=== PATIENT | male | born 1940 | race Caucasian/White ===

== ENCOUNTER 2019-06-18 06:39 | Inpatient (IN) | payer OTHER ==
[2019-06-12 10:43] LABS: BASOPHILS # (AUTO) 0.1 X10'3 (0-0.2); BASOPHILS % (AUTO) 0.7 % (0-1); EOSINOPHILS # (AUTO) 0.2 X10'3 (0-0.9); LYMPHOCYTES # (AUTO) 2.5 X10'3 (1.1-4.8); LYMPHOCYTES % (AUTO) 29.8 % (21-51); MEAN CORPUSCULAR HEMOGLOBIN 31.3 PG (27.0-31.0); MEAN CORPUSCULAR HGB CONC 34.4 g/dL (33.0-36.5); MEAN CORPUSCULAR VOLUME 90.8 FL (78-98); MEAN PLATELET VOLUME 9.6 FL (7.4-10.4); MONOCYTES # (AUTO) 0.6 X10'3 (0-0.9); MONOCYTES % (AUTO) 7.8 % (2-12); NEUTROPHILS # (AUTO) 4.9 X10'3 (1.8-7.7); NEUTROPHILS % (AUTO) 59.7 % (42-75); PRE OP HEMATOCRIT 44.4 % (42.0-52.0); PRE OP HEMOGLOBIN 15.3 g/dL (14.0-17.9); PRE OP PLATELET COUNT 191 X10'3 (140-440); RED BLOOD COUNT 4.88 X10'6 (4.70-6.10); RED CELL DISTRIBUTION WIDTH 13.4 % (11.5-14.5)
[2019-06-12 10:54] LABS: PRE OP PROTIME 10.5 SECONDS (9.0-12.0)
[2019-06-12 10:56] LABS: ALBUMIN 3.7 G/DL (3.4-5.0); ALBUMIN/GLOBULIN RATIO 0.8 (1.1-1.5); ALKALINE PHOSPHATASE 67 IU/L (46-116); BLOOD UREA NITROGEN 24 MG/DL (7-18); BUN/CREATININE RATIO 22.9 (5.4-32.0); CALCIUM 9.1 MG/DL (8.5-10.1); CHLORIDE 104 MMOL/L (99-107); CREATININE 1.05 MG/DL (0.60-1.10); PRE OP ALT 31 U/L (30-65); PRE OP ANION GAP 11 (8-16); PRE OP AST 17 U/L (10-37); PRE OP BILIRUB, TOTAL 0.8 MG/DL (0.0-1.0); PRE OP GLUCOSE 103 MG/DL (70-104); PRE OP POTASSIUM 4.3 MMOL/L (3.4-5.1); PRE OP SODIUM 142 MMOL/L (135-145); TOTAL CARBON DIOXIDE 26.8 MMOL/L (24-32); TOTAL PROTEIN 8.4 G/DL (6.4-8.2); eGFR 68 ML/MIN
[2019-06-18] VITALS (18 sets, daily range): BP systolic 93–178; BP diastolic 54–109
[~2019-06-18] VITALS: Ht 177.8 cm; Wt 96.2 kg
[~2019-06-18 06:39] MED LIST: ACET-1059 PO; FLO0.4C PO; GABA-532 PO; LISI40TA4 PO; MELO7.5T12 PO; VANCOMYCIN INJ 1000 MG in NORMAL SALINE 250ml IV.SOLN IV ONE; acetaminophen 325mg tablet PO ONE; cefazolin/dext.iso 2gm/50ml 50 ML IV ONE; celeCOXIB 100mg capsule PO ONE; famotidine 20mg tablet PO ONE; gabapentin 300mg capsule PO ONE; metoclopramide 5 mg/ml inj IV ONE; oxyCODONE SR 10mg (sust. release) tab -2 tabs (20mg) PO ONE; ringers solution, lacted 1,000 ML IV SCH; tranexamic acid inj. 1,000 MG in normal saline 100 ML IV ONE; vancomycin inj 1,500 MG in normal saline 300ml IV soln IV ONE
[2019-06-18] MEDS ORDERED: ondansetron/PF 4mg/2ml inj IV PRN ×3 (06:40→10:25)
[2019-06-18] MEDS ORDERED: bisacodyl 10mg suppository rectal RC PRN (06:40)
[2019-06-18] MEDS ORDERED: magnesium hydroxide 30ml (MOM) UD suspension PO PRN (06:40)
[2019-06-18] MEDS ORDERED: acetaminophen 325mg tablet PO PRN (06:40)
[2019-06-18] MEDS ORDERED: diphenhydrAMINE 25mg capsule PO PRN (06:40)
[2019-06-18] MEDS ORDERED: HYDROmorphone 1 mg/ml syringe IV PRN (06:40)
[2019-06-18] MEDS: gabapentin 300mg capsule PO SCH ×3 (08:00→21:09)
[2019-06-18] MEDS: lisinopril 20mg tablet PO SCH (08:00)
[2019-06-18] MEDS: tamsulosin 0.4mg capsule PO SCH (08:00)
[2019-06-18] MEDS: ascorbic acid 500mg tablet PO SCH ×2 (08:00→21:09)
[2019-06-18] MEDS ORDERED: ringers solution, lacted 1,000 ML IV SCH (08:04)
[2019-06-18] MEDS ORDERED: fentaNYL/PF 50MCG/1 ML 2ML syringe IV PRN ×2 (08:05)
[2019-06-18] MEDS ORDERED: hydrALAZINE 20mg/ml inj. IV PRN (08:05)
[2019-06-18] MEDS ORDERED: morphine 4 MG/ML inj SYRINge IV PRN ×2 (08:05)
[2019-06-18] MEDS ORDERED: labetalol 20mg/4ml (5mg/ml) syringe IV PRN (08:05)
[2019-06-18] MEDS: aspirin 325mg tablet PO SCH (08:30)
[2019-06-18] MEDS ORDERED: vancomycin 1,000mg inj ONE (08:59)
[2019-06-18] MEDS ORDERED: ketorolac trometh. 30mg/ml inj. ONE (08:59)
[2019-06-18] MEDS ORDERED: cloNIDine hcl/PF 100mcg/ml inj ONE (08:59)
[2019-06-18] MEDS ORDERED: epiNEPHrine 1 mg/ml inj ONE (08:59)
[2019-06-18] MEDS ORDERED: ROPIVAcaine 0.5% (5mg/ml) 30ml vial ONE (09:00)
[2019-06-18] MEDS ORDERED: tetracaine 1% (10mg/ml) pres. free inj. ONE (09:01)
[2019-06-18] MEDS ORDERED: MIDAZolam 5mg/5ml vial ONE (09:22)
[2019-06-18] MEDS ORDERED: fentaNYL/PF 50MCG/1 ML 2ML syringe ONE (09:22)
[2019-06-18] MEDS ORDERED: phenylephrine 10mg/ml inj. ONE (09:29)
[2019-06-18] MEDS ORDERED: LIDOcaine 2% (20mg/ml) 5ml vial ONE (09:55)
[2019-06-18] MEDS ORDERED: propofol inj 20 ML IV ONE (09:55)
[2019-06-18] MEDS ORDERED: diphenhydrAMINE 50 mg/ml inj IV PRN (10:25)
--- NOTE | 2019-06-18 11:05 | NUR ---
Received from OR via BED, accompanied by Anesthesiologist DR PAYNE and report given by Anesthesiolgist. PATIENT WAKING UP, DENIES PAIN, V/S WNL, NEUROVASCULAR CHECKS INTACT, TAO DRESSING TO RIGHT HIP CDI WITH RLE IN LEG BRACE, SCD ON, 18G LUE . F/C DRAINING CLEAR YELLOW URINE
--- NOTE | 2019-06-18 12:05 | NUR ---
PATIENT A&OX4, DENIES PAIN, V/S WNL, NEUROVASCULAR CHECKS INTACT, TAO DRESSING TO RIGHT HIP CDI WITH RLE IN LEG BRACE, SCD ON, 20G LUE . F/C DRAINING CLEAR YELLOW URINE, SENSATIONS T10. PATIENT TAKEN TO 4013B WITH ALL BELONGINGS AND HOOKED UP TO MONITORS IN ROOM AND REPORT GIVEN TO PLATE AND FRAME FILTER OPERATOR WHO HAS TAKEN OVER PATIENT CARE.
[2019-06-18] MEDS: potassium cl 20mEq in 1/2 NS 1,000 ML IV SCH ×4 (14:39→23:52)
[2019-06-18] MEDS ORDERED: tranexamic acid inj. 1,000 MG in normal saline 100ml IV soln 100 ML IV ONE (16:00)
[2019-06-18] MEDS: cefazolin/dext.iso 2gm/50ml 50 ML IV SCH ×2 (17:09→23:52)
[2019-06-18] MEDS: HYDROcodone/acetaminophen 10/325mg tab PO PRN ×2 (17:15→20:37)
--- NOTE | 2019-06-18 18:15 | NUR ---
RECEIVED REPORT FROM ELIU NAVARRO AND ASSUMED PATIENT CARE
--- NOTE | 2019-06-18 18:26 | NUR ---
RECEIVED REPORT FROM ELIU NAVARRO AND ASSUMED PATIENT CARE
--- NOTE | 2019-06-18 18:37 | NUR ---
Problems reprioritized. Patient report given, questions answered & plan of care reviewed with Jocy NAVARRO.
[2019-06-18] MEDS: sennosides 8.6mg tablet PO SCH (21:09)
[2019-06-19 05:00] LABS: BASOPHILS # (AUTO) 0.1 X10'3 (0-0.2); BASOPHILS % (AUTO) 0.6 % (0-1); EOSINOPHILS # (AUTO) 0.1 X10'3 (0-0.9); EOSINOPHILS % (AUTO) 1.1 % (0-6); HEMATOCRIT 39.6 % (42.0-52.0); HEMOGLOBIN 13.7 g/dl (14.0-17.9); LYMPHOCYTES % (AUTO) 11.3 % (21-51); MEAN CORPUSCULAR HEMOGLOBIN 31.5 PG (27.0-31.0); MEAN CORPUSCULAR HGB CONC 34.6 g/dL (33.0-36.5); MEAN CORPUSCULAR VOLUME 91.1 FL (78-98); MEAN PLATELET VOLUME 9.3 FL (7.4-10.4); MONOCYTES # (AUTO) 0.5 X10'3 (0-0.9); MONOCYTES % (AUTO) 5.3 % (2-12); NEUTROPHILS # (AUTO) 7.3 X10'3 (1.8-7.7); NEUTROPHILS % (AUTO) 81.7 % (42-75); PLATELET COUNT 158 X10'3 (140-440); RED BLOOD COUNT 4.34 X10'6 (4.70-6.10); RED CELL DISTRIBUTION WIDTH 13.6 % (11.5-14.5)
[2019-06-19 05:08] LABS: ANION GAP 8 (8-16); CHLORIDE 103 MMOL/L (99-107); POTASSIUM 4.4 MMOL/L (3.5-5.1); SODIUM 137 MMOL/L (135-145); TOTAL CARBON DIOXIDE 26.1 MMOL/L (24-32)
[2019-06-19] MEDS: HYDROcodone/acetaminophen 10/325mg tab PO PRN ×4 (05:12→20:22)
[2019-06-19 06:00] VITALS: BP 173/91
[2019-06-19] MEDS: tamsulosin 0.4mg capsule PO SCH (08:56)
[2019-06-19] MEDS: ascorbic acid 500mg tablet PO SCH ×2 (08:57→20:23)
[2019-06-19] MEDS: aspirin 325mg tablet PO SCH (08:57)
[2019-06-19] MEDS: gabapentin 300mg capsule PO SCH ×3 (08:57→20:21)
[2019-06-19] MEDS: lisinopril 20mg tablet PO SCH (08:57)
[2019-06-19] MEDS: diphenhydrAMINE 25mg capsule PO PRN (08:58)
[2019-06-19 10:00] VITALS: BP 136/56
[2019-06-19] MEDS: potassium cl 20mEq in 1/2 NS 1,000 ML IV SCH ×2 (14:39→20:27)
--- NOTE | 2019-06-19 16:44 | NUR ---
Bladder scan revealed 81ml . Pt reports no discomfort, no pressure upon palpation.
[2019-06-19 18:00] VITALS: BP 113/61
--- NOTE | 2019-06-19 18:22 | NUR ---
Problems reprioritized. Patient report given, questions answered & plan of care reviewed with Jocy NAVARRO.
[2019-06-19] MEDS: sennosides 8.6mg tablet PO SCH (20:22)
[2019-06-19] MEDS: celeCOXIB 100mg capsule PO SCH (20:22)
[2019-06-19 22:00] VITALS: BP 105/58
[2019-06-19] MEDS: HYDROmorphone inj. 0.5 MG/0.5 ML DISP.SYRIN IV PRN (23:13)
[2019-06-20] MEDS: diphenhydrAMINE 25mg capsule PO PRN ×3 (03:36→20:33)
[2019-06-20] MEDS: HYDROcodone/acetaminophen 10/325mg tab PO PRN ×2 (05:25→20:10)
[2019-06-20 06:00] VITALS: BP 129/55
[2019-06-20 06:19] LABS: BASOPHILS % (AUTO) 0.4 % (0-1); EOSINOPHILS # (AUTO) 0.3 X10'3 (0-0.9); EOSINOPHILS % (AUTO) 2.6 % (0-6); HEMATOCRIT 36.5 % (42.0-52.0); HEMOGLOBIN 12.6 g/dl (14.0-17.9); LYMPHOCYTES # (AUTO) 1.2 X10'3 (1.1-4.8); LYMPHOCYTES % (AUTO) 11.4 % (21-51); MEAN CORPUSCULAR HEMOGLOBIN 31.5 PG (27.0-31.0); MEAN CORPUSCULAR HGB CONC 34.6 g/dL (33.0-36.5); MEAN CORPUSCULAR VOLUME 90.9 FL (78-98); MEAN PLATELET VOLUME 9.5 FL (7.4-10.4); MONOCYTES # (AUTO) 0.8 X10'3 (0-0.9); MONOCYTES % (AUTO) 8.2 % (2-12); NEUTROPHILS % (AUTO) 77.4 % (42-75); PLATELET COUNT 147 X10'3 (140-440); RED BLOOD COUNT 4.01 X10'6 (4.70-6.10); RED CELL DISTRIBUTION WIDTH 13.6 % (11.5-14.5); WHITE BLOOD COUNT 10.3 X10'3 (4.5-11.0)
--- NOTE | 2019-06-20 06:20 | NUR ---
Patient in room ORTH[facility] 4013. I have received report from Jocy and had the opportunity to ask questions and assume patient care.
--- NOTE | 2019-06-20 06:26 | NUR ---
Problems reprioritized. Patient report given, questions answered & plan of care reviewed with RAMON THOMAS.
--- NOTE | 2019-06-20 06:30 | NUR ---
Patient in room ORTHO 4013. I have received report from elle NAVARRO and had the opportunity to ask questions and assume patient care.
[2019-06-20 08:40] VITALS: BP 134/72
[2019-06-20] MEDS: tamsulosin 0.4mg capsule PO SCH (08:48)
[2019-06-20] MEDS: celeCOXIB 100mg capsule PO SCH ×2 (08:48→20:11)
[2019-06-20] MEDS: gabapentin 300mg capsule PO SCH ×3 (08:49→20:10)
[2019-06-20] MEDS: ascorbic acid 500mg tablet PO SCH ×2 (08:49→20:11)
[2019-06-20] MEDS: lisinopril 20mg tablet PO SCH (08:50)
[2019-06-20] MEDS: aspirin 325mg tablet PO SCH (08:50)
[2019-06-20] MEDS ORDERED: ASPI-1 PO (13:08)
--- NOTE | 2019-06-20 14:13 | NUR ---
Joint replacement consult: Pt unable to wake sleeping during RD visit. Written high protein ed w/ RD contact information left at bedside. Pt PO 75% meals good given age and post-op healing needs. Will monitor for additional protein needs post-op. Addendum: 06/20/19 at [address] Amended: Links added.
--- NOTE | 2019-06-20 15:30 | NUR ---
re: Student documentation: I have reviewed and agree with all interventions, assessments performed and documented by Mel Hedrick.
[2019-06-20 18:00] VITALS: BP 156/78
--- NOTE | 2019-06-20 18:00 | NUR ---
Patient in room ORTHO 4013. I have received report from Dory NAVARRO and had the opportunity to ask questions and assume patient care.
--- NOTE | 2019-06-20 18:01 | NUR ---
Problems reprioritized. Patient report given, questions answered & plan of care reviewed with Vanesa NAVARRO.
--- NOTE | 2019-06-20 19:30 | NUR ---
Per patient he has had a rash like this before from soap/ detergent and that is what he thinks this rash is from.
[2019-06-20] MEDS: sennosides 8.6mg tablet PO SCH (20:11)
--- NOTE | 2019-06-20 20:45 | NUR ---
Patient is unable to wear the leg brace at this time, I did place it on him but due to the rash he can't stand anything on his legs. He is unable to wear the SCD's either. I placed a pillow under each heel so he can't cross the legs and dislocate the hip.
--- NOTE | 2019-06-20 21:00 | NUR ---
Took oxygen off patient at this time due to oxygen saturation wnl without oxygen on; he had taken it off on his own.
[2019-06-20 22:00] VITALS: BP 146/76
--- NOTE | 2019-06-20 22:25 | NUR ---
I called the plastering contractor MD regarding the rash and no relief from Benadryl, I am awaiting call back from physician.
--- NOTE | 2019-06-20 22:35 | NUR ---
Dr. Gamez called back and he is going to attempt to reach Dr. Gonzales regarding what medications to give patient.
[2019-06-20] MEDS: HYDROmorphone inj. 0.5 MG/0.5 ML DISP.SYRIN IV PRN (22:43)
--- NOTE | 2019-06-20 22:45 | NUR ---
Dr. Gamez gave order for Solumedrol iv times one for itching from rash without relief from Benadryl.
[2019-06-20] MEDS ORDERED: methylPREDNISolone sod succ 125mg/2ml vial IV ONE (22:55)
--- NOTE | 2019-06-20 23:00 | NUR ---
Received report from Vanesa NAVARRO. had the opportunity to ask questions. assumed care of patient. administered solumedrol and replaced powder pack. will continue to monitor patient.
--- NOTE | 2019-06-20 23:05 | NUR ---
I gave report to Arcadio NAVARRO and she is taking over the care of the patient.
[2019-06-20] MEDS ORDERED: methylPREDNISolone sod succ 125mg/2ml vial ONE ×2 (23:10→23:13)
[2019-06-21] MEDS: HYDROcodone/acetaminophen 10/325mg tab PO PRN (02:53)
[2019-06-21] MEDS: diphenhydrAMINE 25mg capsule PO PRN ×2 (02:53→11:43)
--- NOTE | 2019-06-21 04:30 | NUR ---
No change in appearance of the rash noted at this time, still c/o itching and pain so will give more Rustam and [place]. Addendum: 06/21/19 at 0603 by Vanesa Carvajal RN This was around 0300 not 0430.
[2019-06-21 05:21] LABS: BASOPHILS % (AUTO) 0.2 % (0-1); EOSINOPHILS # (AUTO) 0.1 X10'3 (0-0.9); EOSINOPHILS % (AUTO) 0.4 % (0-6); HEMATOCRIT 38.1 % (42.0-52.0); LYMPHOCYTES # (AUTO) 0.7 X10'3 (1.1-4.8); LYMPHOCYTES % (AUTO) 5.7 % (21-51); MEAN CORPUSCULAR HEMOGLOBIN 31.3 PG (27.0-31.0); MEAN CORPUSCULAR HGB CONC 34.3 g/dL (33.0-36.5); MEAN CORPUSCULAR VOLUME 91.4 FL (78-98); MEAN PLATELET VOLUME 9.1 FL (7.4-10.4); MONOCYTES # (AUTO) 0.2 X10'3 (0-0.9); MONOCYTES % (AUTO) 1.8 % (2-12); NEUTROPHILS # (AUTO) 11.5 X10'3 (1.8-7.7); NEUTROPHILS % (AUTO) 91.9 % (42-75); PLATELET COUNT 174 X10'3 (140-440); RED BLOOD COUNT 4.17 X10'6 (4.70-6.10); RED CELL DISTRIBUTION WIDTH 13.7 % (11.5-14.5); WHITE BLOOD COUNT 12.5 X10'3 (4.5-11.0)
[2019-06-21 06:00] VITALS: BP 133/86
--- NOTE | 2019-06-21 06:05 | NUR ---
Patient in room ORTHO 4013. I have received report from [facility] and had the opportunity to ask questions and assume patient care.
--- NOTE | 2019-06-21 06:10 | NUR ---
Gave report to Dory NAVARRO.
[2019-06-21] MEDS: tamsulosin 0.4mg capsule PO SCH (07:48)
[2019-06-21] MEDS: celeCOXIB 100mg capsule PO SCH (07:48)
[2019-06-21] MEDS: lisinopril 20mg tablet PO SCH (07:49)
[2019-06-21] MEDS: aspirin 325mg tablet PO SCH (07:49)
[2019-06-21] MEDS: gabapentin 300mg capsule PO SCH (07:49)
[2019-06-21] MEDS: ascorbic acid 500mg tablet PO SCH (07:49)
[2019-06-21 07:50] VITALS: BP 126/64
[2019-06-21 10:00] VITALS: BP 143/69
--- NOTE | 2019-06-21 12:26 | NUR ---
Reviewed discharge instructions with pt and family. Pt verbalized understanding. Pt is alert, oriented and does not have c/o pain or discomfort. Pt's TAO dressing was changed immediately prior to discharge. All of pt's belongings were returned to pt. Pt was wheeled downstairs to be driven home by family.
== END 2019-06-21 12:39 | disposition home or self-care (01) | DRG 470 ==
LOC: PAS IN 06:39 → EDSTATUS 10:00 → ORTHO 4S 13:00
PROVIDERS: ADMIT Orthopaedic Surgery; ATTEND Orthopaedic Surgery
PROC: 0SR906A Replacement of Right Hip Joint with Oxidized Zirconium on Polyethylene Synthetic Substitute, Uncemented, Open Approach (ICD-10-PCS; principal; 2019-06-18 09:29)
DX: M16.11 Unilateral primary osteoarthritis, right hip (principal); D62 Acute posthemorrhagic anemia; I10 Essential (primary) hypertension; N40.0 Benign prostatic hyperplasia without lower urinary tract symptoms; Z87.11 Personal history of peptic ulcer disease; Z87.891 Personal history of nicotine dependence; Z79.899 Other long term (current) drug therapy
CPT/HCPCS: 36415; 71046; 72170; 80051; 80053; 82948; 85025; 85610; 85730; 86885; 86900; 86901; 87081; 97116; 97162; 97530; A4615; A7000; C1758; C1776; G0378; J0171; J0735; J1170; J1885; J2001; J2250; J2370; J2704; J2765; J2795; J2930; J3010; J3370; J3480; J7120; Q0163

== ENCOUNTER 2021-01-06 01:29 | Emergency (ER) | payer OTHER ==
[~2021-01-06] VITALS: Ht 175.3 cm; Wt 92.7 kg
[~2021-01-06 01:29] MED LIST changes: -ACET-1059 PO; +ASPI-1 PO; +LISI40TA13 PO; -LISI40TA4 PO; -VANCOMYCIN INJ 1000 MG in NORMAL SALINE 250ml IV.SOLN IV ONE; -acetaminophen 325mg tablet PO ONE; -cefazolin/dext.iso 2gm/50ml 50 ML IV ONE; -celeCOXIB 100mg capsule PO ONE; -famotidine 20mg tablet PO ONE; -gabapentin 300mg capsule PO ONE; -metoclopramide 5 mg/ml inj IV ONE; -oxyCODONE SR 10mg (sust. release) tab -2 tabs (20mg) PO ONE; -ringers solution, lacted 1,000 ML IV SCH; -tranexamic acid inj. 1,000 MG in normal saline 100 ML IV ONE; -vancomycin inj 1,500 MG in normal saline 300ml IV soln IV ONE
[2021-01-06] MEDS ORDERED: LIDOcaine 2% 10ml TOPICAL JELLY (Urojet) MM ONE (01:35)
[2021-01-06] MEDS ORDERED: LIDOcaine 2% 10ml TOPICAL JELLY (Urojet) TP ONE (01:35)
[2021-01-06 01:37] VITALS: BP 189/92
[2021-01-06 02:11] LABS: BASOPHILS # (AUTO) 0.1 X10'3 (0-0.2); BASOPHILS % (AUTO) 0.8 % (0-1); EOSINOPHILS # (AUTO) 0.1 X10'3 (0-0.9); EOSINOPHILS % (AUTO) 1.7 % (0-6); HEMOGLOBIN 13.9 g/dl (14.0-17.9); LYMPHOCYTES # (AUTO) 1.7 X10'3 (1.1-4.8); LYMPHOCYTES % (AUTO) 23.4 % (21-51); MEAN CORPUSCULAR VOLUME 91.3 FL (78-98); MEAN PLATELET VOLUME 9.7 FL (7.4-10.4); MONOCYTES # (AUTO) 0.5 X10'3 (0-0.9); MONOCYTES % (AUTO) 6.2 % (2-12); NEUTROPHILS # (AUTO) 4.9 X10'3 (1.8-7.7); NEUTROPHILS % (AUTO) 67.9 % (42-75); PLATELET COUNT 180 X10'3 (140-440); RED BLOOD COUNT 4.49 X10'6 (4.70-6.10); WHITE BLOOD COUNT 7.2 X10'3 (4.5-11.0)
--- NOTE | 2021-01-06 02:17 | NUR ---
PT GIVEN CATH TRAINING FOR EMPTYING DRAINAGE BAG AND SWITCHING BACK AND FORTH BETWEEN LEG BAG AND BEDSIDE DRAINAGE DEVICE.
[2021-01-06 02:25] LABS: ALANINE AMINOTRANSFERASE 27 U/L (12-78); ALBUMIN 3.9 G/DL (3.4-5.0); ALBUMIN/GLOBULIN RATIO 0.9 (1.1-1.5); ALKALINE PHOSPHATASE 77 IU/L (46-116); ANION GAP 10 (8-16); ASPARTATE AMINO TRANSFERASE 18 U/L (10-37); BLOOD UREA NITROGEN 25 MG/DL (7-18); BUN/CREATININE RATIO 21.7 (5.4-32.0); CALCIUM 9.3 MG/DL (8.5-10.1); CHLORIDE 103 MMOL/L (99-107); CREATININE 1.15 MG/DL (0.60-1.10); GLUCOSE 110 MG/DL (70-104); POTASSIUM 4.2 MMOL/L (3.5-5.1); SODIUM 139 MMOL/L (135-145); TOTAL CARBON DIOXIDE 26.4 MMOL/L (24-32); TOTAL PROTEIN 8.1 G/DL (6.4-8.2); eGFR 61 ML/MIN
== END 2021-01-06 02:54 | disposition home or self-care (01) ==
LOC: ER 01:29
DX: R33.9 Retention of urine, unspecified (principal); R10.30 Lower abdominal pain, unspecified; N28.9 Disorder of kidney and ureter, unspecified; Z79.82 Long term (current) use of aspirin; Z79.899 Other long term (current) drug therapy
CPT/HCPCS: 36415; 51702; 80053; 85025; 99284

== ENCOUNTER 2021-01-08 16:38 | Emergency (ER) | payer OTHER ==
[~2021-01-08] VITALS: Ht 177.8 cm; Wt 87.0 kg
[2021-01-08 17:46] LABS: CLARITY,URINE SLIGHTLY CLOUDY (Clear); COLOR,URINE YELLOW (Yellow); GLUCOSE, URINE NEGATIVE (Neg); KETONES,URINE TRACE mg/dl (Neg); LEUKOCYTE ESTERASE ,URINE SMALL (Neg); NITRITES, URINE NEGATIVE (Neg); OCCULT BLOOD,URINE LARGE (Neg); PH,URINE 5.5 (4.8-8.0); PROTEIN,URINE 100 mg/dl (Neg); UROBILINOGEN,URINE 0.2 E.U/dL (0.2-1.0)
--- NOTE | 2021-01-08 17:54 | NUR ---
report given by Olga NAVARRO, assumed care.
[2021-01-08 18:10] LABS: UA COLLECTION TYPE FOLEY CATH
[2021-01-08 18:11] LABS: BACTERIA,URINE NONE SEEN /HPF (Neg); MUCUS STRANDS MODERATE /LPF (Neg); RBC,URINE 20-50 /HPF (0-2); SQUAMOUS EPITHELIAL CELL,UR NONE SEEN /LPF (FEW); WBC,URINE 0-4 /HPF (0-4)
--- NOTE | 2021-01-08 18:18 | NUR ---
report given to RN, care transferred
[2021-01-08] MEDS ORDERED: CIPR-202 PO (19:17)
[2021-01-08] MEDS ORDERED: PHEN-786 PO (19:20)
[2021-01-08 20:48] VITALS: BP 148/82
== END 2021-01-08 19:55 | disposition home or self-care (01) ==
LOC: ER 16:39
DX: N39.0 Urinary tract infection, site not specified (principal); R30.0 Dysuria; R33.9 Retention of urine, unspecified; R31.9 Hematuria, unspecified; Z79.82 Long term (current) use of aspirin; Z79.2 Long term (current) use of antibiotics; Z79.899 Other long term (current) drug therapy
CPT/HCPCS: 81001; 87088; 99283

== ENCOUNTER 2021-01-26 12:02 | Emergency (ER) | payer OTHER, MEDICARE ==
[~2021-01-26] VITALS: Ht 177.8 cm; Wt 87.8 kg
[~2021-01-26 12:02] MED LIST changes: +PHEN-786 PO
[2021-01-26] MEDS ORDERED: LIDOcaine 2% 10ml TOPICAL JELLY (Urojet) TP ONE (13:10)
--- NOTE | 2021-01-26 13:28 | NUR ---
14 JUSTA CHRISTIANSON INSERTED AT THIS TIME PER MD ORDER. Addendum: 01/26/21 at 1335 by MARIA GUADALUPE 675 ML CLEAR YELLOW URINE DRAINED FROM DRAINAGE BAG, DR VALDERRAMA AWARE.
[2021-01-26 13:45] LABS: CLARITY,URINE CLEAR (Clear); COLOR,URINE STRAW (Yellow); GLUCOSE, URINE NEGATIVE (Neg); KETONES,URINE NEGATIVE (Neg); LEUKOCYTE ESTERASE ,URINE NEGATIVE (Neg); NITRITES, URINE NEGATIVE (Neg); OCCULT BLOOD,URINE MODERATE (Neg); PROTEIN,URINE NEGATIVE (Neg); UA COLLECTION TYPE FOLEY CATH; UROBILINOGEN,URINE 0.2 E.U/dL (0.2-1.0)
[2021-01-26 13:53] LABS: BACTERIA,URINE NONE SEEN /HPF (Neg); RBC,URINE 0-2 /HPF (0-2); SQUAMOUS EPITHELIAL CELL,UR FEW /LPF (FEW); WBC,URINE 0-4 /HPF (0-4)
== END 2021-01-26 14:59 | disposition home or self-care (01) ==
LOC: ER 12:02
DX: R33.9 Retention of urine, unspecified (principal); R34 Anuria and oliguria; N40.0 Benign prostatic hyperplasia without lower urinary tract symptoms; Z79.82 Long term (current) use of aspirin; Z79.899 Other long term (current) drug therapy
CPT/HCPCS: 51702; 81001; 99284

== ENCOUNTER 2021-02-26 05:49 | Emergency (ER) | payer OTHER, MEDICARE ==
[~2021-02-26] VITALS: Ht 177.8 cm; Wt 90.0 kg
[2021-02-26 06:06] VITALS: BP 150/86
[2021-02-26 06:54] LABS: CLARITY,URINE SLIGHTLY CLOUDY (Clear); COLOR,URINE STRAW (Yellow); GLUCOSE, URINE NEGATIVE (Neg); KETONES,URINE NEGATIVE (Neg); LEUKOCYTE ESTERASE ,URINE SMALL (Neg); NITRITES, URINE NEGATIVE (Neg); OCCULT BLOOD,URINE LARGE (Neg); PROTEIN,URINE NEGATIVE (Neg); UROBILINOGEN,URINE 0.2 E.U/dL (0.2-1.0)
[2021-02-26 06:56] LABS: UA COLLECTION TYPE FOLEY CATH
[2021-02-26 07:02] LABS: BACTERIA,URINE 2+ /HPF (Neg); MUCUS STRANDS FEW /LPF (Neg); RBC,URINE 50-100 /HPF (0-2); RENAL CELLS, URINE FEW /HPF; SQUAMOUS EPITHELIAL CELL,UR NONE SEEN /LPF (FEW); WBC CLUMPS,URINE MODERATE /HPF (NEGATIVE); WBC,URINE TNTC /HPF (0-4)
[2021-02-26] MEDS ORDERED: CEPH500C2 PO (08:06)
== END 2021-02-26 08:17 | disposition home or self-care (01) ==
LOC: ER 05:49
DX: N39.0 Urinary tract infection, site not specified (principal); N40.0 Benign prostatic hyperplasia without lower urinary tract symptoms; R31.9 Hematuria, unspecified; R33.9 Retention of urine, unspecified; Z79.82 Long term (current) use of aspirin; Z79.899 Other long term (current) drug therapy; Z79.2 Long term (current) use of antibiotics
CPT/HCPCS: 51702; 81001; 99283; 99284

== ENCOUNTER 2021-07-07 10:11 | Emergency (ER) | payer MEDICARE, OTHER ==
[~2021-07-07] VITALS: Ht 177.8 cm; Wt 85.0 kg
[2021-07-07 10:55] VITALS: BP 172/83
[2021-07-07 12:03] LABS: CLARITY,URINE BLOODY (Clear); COLOR,URINE RED (Yellow); UA COLLECTION TYPE CLN CATCH MIDSTREAM
[2021-07-07 12:11] LABS: BACTERIA,URINE FEW /HPF (Neg); MUCUS STRANDS NONE SEEN /LPF (Neg); RBC,URINE TNTC /HPF (0-2); SQUAMOUS EPITHELIAL CELL,UR FEW /LPF (FEW); WBC,URINE 0-4 /HPF (0-4)
== END 2021-07-07 14:45 | disposition home or self-care (01) ==
LOC: ER 10:12
DX: R31.9 Hematuria, unspecified (principal); R32 Unspecified urinary incontinence; R30.0 Dysuria; Z79.82 Long term (current) use of aspirin; Z79.899 Other long term (current) drug therapy
CPT/HCPCS: 81001; 99284

== ENCOUNTER 2024-06-22 09:33 | Inpatient (IN) | payer OTHER ==
[2024-06-22] VITALS (13 sets, daily range): BP systolic 137–204; BP diastolic 68–106; PULSE 59–95; RESP 10–19; TEMP 97.8–98.1; O2SAT 95–99
[~2024-06-22] VITALS: Ht 177.8 cm; Wt 80.6 kg
[2024-06-22] MEDS: normal saline 1000ML IV soln IVB ONE (10:41)
[2024-06-22] MEDS: acetaminophen 1,000mg/100ml IV 100 ML IV ONE (10:41)
[2024-06-22 11:27] LABS: BASOPHILS % (AUTO) 0.4 % (0-1); EOSINOPHILS # (AUTO) 0.2 X10'3 (0-0.9); EOSINOPHILS % (AUTO) 2.6 % (0-6); HEMATOCRIT 39.7 % (42.0-52.0); HEMOGLOBIN 13.3 g/dl (14.0-17.9); LYMPHOCYTES # (AUTO) 1.7 X10'3 (1.1-4.8); LYMPHOCYTES % (AUTO) 24.3 % (21-51); MEAN CORPUSCULAR HEMOGLOBIN 31.1 PG (27.0-31.0); MEAN CORPUSCULAR HGB CONC 33.4 g/dL (33.0-36.5); MEAN CORPUSCULAR VOLUME 93.1 FL (78-98); MEAN PLATELET VOLUME 9.9 FL (7.4-10.4); MONOCYTES # (AUTO) 0.4 X10'3 (0-0.9); NEUTROPHILS # (AUTO) 4.6 X10'3 (1.8-7.7); NEUTROPHILS % (AUTO) 66.7 % (42-75); PLATELET COUNT 183 X10'3 (140-440); RED BLOOD COUNT 4.27 X10'6 (4.70-6.10); RED CELL DISTRIBUTION WIDTH 13.5 % (11.5-14.5); WHITE BLOOD COUNT 6.9 X10'3 (4.5-11.0)
[2024-06-22 11:39] LABS: ALANINE AMINOTRANSFERASE 19 U/L (12-78); ALBUMIN 3.4 G/DL (3.4-5.0); ALBUMIN/GLOBULIN RATIO 0.9 (1.1-1.5); ALKALINE PHOSPHATASE 67 IU/L (46-116); ANION GAP 5 (8-16); ASPARTATE AMINO TRANSFERASE 17 U/L (10-37); BILIRUBIN,TOTAL 0.8 MG/DL (0.1-1.0); BLOOD UREA NITROGEN 20 MG/DL (7-18); BUN/CREATININE RATIO 21.3 (10.0-20.0); CHLORIDE 104 MMOL/L (99-107); CREATININE 0.94 MG/DL (0.60-1.10); GLUCOSE 95 MG/DL (70-104); LIPASE 66 U/L (16-77); POTASSIUM 4.5 MMOL/L (3.5-5.1); SODIUM 139 MMOL/L (135-145); TOTAL CARBON DIOXIDE 29.6 MMOL/L (24-32); TOTAL PROTEIN 7.4 G/DL (6.4-8.2); eCRCL 61 ML/MIN; eGFR 77 ML/MIN
[2024-06-22 11:59] LABS: BILIRUBIN,URINE NEGATIVE (Neg); CLARITY,URINE CLEAR (Clear); COLOR,URINE YELLOW (Yellow); GLUCOSE, URINE NEGATIVE (Neg); KETONES,URINE NEGATIVE (Neg); LEUKOCYTE ESTERASE ,URINE NEGATIVE (Neg); NITRITES, URINE NEGATIVE (Neg); OCCULT BLOOD,URINE TRACE-INTACT (Neg); PROTEIN,URINE NEGATIVE (Neg); UROBILINOGEN,URINE 0.2 E.U/dL (0.2-1.0)
[2024-06-22 12:04] LABS: UA COLLECTION TYPE CLN CATCH MIDSTREAM
[2024-06-22 12:05] LABS: BACTERIA,URINE NONE SEEN /HPF (Neg); MUCUS STRANDS FEW /LPF (Neg); RBC,URINE 0-2 /HPF (0-2); SQUAMOUS EPITHELIAL CELL,UR NONE SEEN /LPF (FEW); WBC,URINE NONE SEEN /HPF (0-4)
[2024-06-22] MEDS ORDERED: mag hydrox/Alum hydrox/simeth 30ml oral suspension PO PRN (12:25)
[2024-06-22] MEDS ORDERED: magnesium sulf-water 4G/100mL 100 ML IV PRN (12:25)
[2024-06-22] MEDS ORDERED: potassium Cl 20 mEq SR tablet PO PRN ×2 (12:25)
[2024-06-22] MEDS ORDERED: morphine 2 MG/ML inj. syringe IV PRN (12:25)
[2024-06-22] MEDS ORDERED: HYDROcodone/acetaminophen 10/325mg tab PO PRN (12:25)
[2024-06-22] MEDS ORDERED: magnesium sulf-water 2g/50mL 50 ML IV PRN (12:25)
[2024-06-22] MEDS ORDERED: magnesium Cl slow-release 64mg tablet PO PRN (12:25)
[2024-06-22] MEDS ORDERED: potassium Cl 40MEQ/1/2NS 520ml 520 ML IV PRN (12:25)
[2024-06-22] MEDS ORDERED: magnesium hydroxide 30ml (MOM) UD suspension PO PRN (12:25)
[2024-06-22 13:11] LABS: APTT 30 SECONDS (22-32); INR 1.1 INR; PROTHROMBIN TIME 11.2 SECONDS (9.0-12.0)
[2024-06-22 13:12] LABS: HEMOGLOBIN A1C 5.7 % (4.5-6.2)
[2024-06-22 13:18] LABS: MAGNESIUM 2.3 MG/DL (1.5-2.4); PRO BRAIN NATRIURETIC PEPTIDE 80 PG/ML (0-450)
[2024-06-22] MEDS: ciprofloxacin lact 400MG/200ML 200 ML IV SCH (13:35)
[2024-06-22] MEDS: normal saline 1000ml 1,000 ML IV SCH (13:36)
[2024-06-22] MEDS: metroNIDAZOLE-Flagyl 500mg/NS 100 ML IV SCH (13:36)
[2024-06-22] MEDS ORDERED: ALPRAZolam 0.5mg tablet PO PRN (14:05)
[2024-06-22] MEDS ORDERED: labetalol 20mg/4ml (5mg/ml) syringe IV PRN (14:25)
[2024-06-22] MEDS ORDERED: ondansetron/PF 4mg/2ml inj IV PRN (14:25)
[2024-06-22] MEDS ORDERED: proCHLORperazine 10 MG/2 ml inj IV PRN (14:25)
[2024-06-22] MEDS ORDERED: meperidine/PF 25mg/ml syringe IV PRN ×3 (14:25)
[2024-06-22] MEDS ORDERED: enalaprilat dihydrate 2.5mg/2ml vial IV PRN (14:25)
[2024-06-22] MEDS ORDERED: morphine 4 MG/ML inj SYRINge IV PRN (14:25)
[2024-06-22] MEDS: lisinopril 20mg tablet PO SCH (15:11)
[2024-06-22] MEDS: ringers solution, lacted 1,000 ML IV SCH (15:13)
[2024-06-22] MEDS ORDERED: BUPIVAcaine 2.5mg/ml inj 50ml vial (contains preservative) ONE (15:27)
[2024-06-22] MEDS ORDERED: midazolam 1 mg/ML 2ml injection ONE (16:10)
[2024-06-22] MEDS ORDERED: propofol inj 20 ML IV ONE (16:10)
[2024-06-22] MEDS ORDERED: fentaNYL/PF 50MCG/1 ML 2ML syringe ONE (16:10)
[2024-06-22] MEDS ORDERED: rocuronium 10mg/ml inj IV ONE (16:11)
[2024-06-22] MEDS ORDERED: LIDOcaine 2% (20mg/ml) 5ml vial ONE (16:11)
[2024-06-22] MEDS ORDERED: sevoflurane 250ml liquid IH ONE (16:12)
[2024-06-22] MEDS ORDERED: hydrALAZINE 20mg/ml inj. ONE (17:32)
[2024-06-22] MEDS ORDERED: meperidine/PF 25mg/ml syringe ONE (17:32)
[2024-06-22] MEDS: acetaminophen 1,000mg/100ml IV 100 ML IV SCH (17:43)
[2024-06-22] MEDS: BUPIVAcaine 0.25% w/Epi /PF 30ml vial IJ ONE (17:44)
[2024-06-22] MEDS: morphine 2 MG/ML inj. syringe IV PRN (18:01)
[2024-06-22] MEDS: gabapentin 300mg capsule PO ONE (18:52)
[2024-06-22] MEDS: HYDROcodone/acetaminophen 10/325mg tab PO ONE (18:53)
[2024-06-22] MEDS: K and/or MAG REPLACEMENT MC SCH (20:00)
[2024-06-22] MEDS ORDERED: docusate sod 100mg capsule PO SCH (20:00)
[2024-06-22] MEDS: hydrALAZINE 20mg/ml inj. IV ONE (20:06)
[2024-06-22] MEDS: tamsulosin 0.4mg capsule PO SCH (21:00)
[2024-06-23] VITALS (8 sets, daily range): BP systolic 113–191; BP diastolic 68–97; PULSE 67–96; RESP 12–19; TEMP 97.6–98.6; O2SAT 95–99
[2024-06-23] MEDS: hydrALAZINE 20mg/ml inj. IV ONE ×2 (01:40→12:45)
[2024-06-23] MEDS: Melatonin 3mg tablet PO ONE (03:57)
[2024-06-23] MEDS: metoprolol tartrate 1mg/ml inj IV ONE (06:15)
[2024-06-23 06:42] LABS: BASOPHILS % (AUTO) 0.1 % (0-1); EOSINOPHILS % (AUTO) 0 % (0-6); HEMATOCRIT 39.8 % (42.0-52.0); HEMOGLOBIN 13.7 g/dl (14.0-17.9); LYMPHOCYTES # (AUTO) 0.7 X10'3 (1.1-4.8); LYMPHOCYTES % (AUTO) 5.8 % (21-51); MEAN CORPUSCULAR HEMOGLOBIN 32.2 PG (27.0-31.0); MEAN CORPUSCULAR HGB CONC 34.5 g/dL (33.0-36.5); MEAN CORPUSCULAR VOLUME 93.2 FL (78-98); MEAN PLATELET VOLUME 10.4 FL (7.4-10.4); MONOCYTES # (AUTO) 0.6 X10'3 (0-0.9); MONOCYTES % (AUTO) 4.7 % (2-12); NEUTROPHILS # (AUTO) 11.1 X10'3 (1.8-7.7); NEUTROPHILS % (AUTO) 89.4 % (42-75); PLATELET COUNT 196 X10'3 (140-440); RED BLOOD COUNT 4.27 X10'6 (4.70-6.10); RED CELL DISTRIBUTION WIDTH 13.5 % (11.5-14.5); WHITE BLOOD COUNT 12.4 X10'3 (4.5-11.0)
[2024-06-23 06:48] LABS: ALANINE AMINOTRANSFERASE 56 U/L (12-78); ALBUMIN 3.2 G/DL (3.4-5.0); ALBUMIN/GLOBULIN RATIO 0.8 (1.1-1.5); ALKALINE PHOSPHATASE 67 IU/L (46-116); ANION GAP 7 (8-16); ASPARTATE AMINO TRANSFERASE 124 U/L (10-37); BILIRUBIN,TOTAL 0.7 MG/DL (0.1-1.0); BLOOD UREA NITROGEN 16 MG/DL (7-18); BUN/CREATININE RATIO 16.3 (10.0-20.0); CALCIUM 8.8 MG/DL (8.5-10.1); CHLORIDE 103 MMOL/L (99-107); CHOLESTEROL 192 MG/DL (0-200); CREATININE 0.98 MG/DL (0.60-1.10); GLUCOSE 155 MG/DL (70-104); HDL CHOLESTEROL 64 MG/DL (35-60); LDL CHOLESTEROL 116 MG/DL (50-100); MAGNESIUM 1.9 MG/DL (1.5-2.4); POTASSIUM 4.3 MMOL/L (3.5-5.1); SODIUM 136 MMOL/L (135-145); TOTAL CARBON DIOXIDE 25.7 MMOL/L (24-32); TOTAL PROTEIN 7.3 G/DL (6.4-8.2); TRIGLYCERIDES 46 MG/DL (20-135); eCRCL 59 ML/MIN; eGFR 73 ML/MIN
[2024-06-23 06:55] LABS: INR 1.1 INR; PROTHROMBIN TIME 11.4 SECONDS (9.0-12.0)
[2024-06-23] MEDS ORDERED: hydrALAZINE 20mg/ml inj. IV ONE (07:25)
[2024-06-23] MEDS: lisinopril 20mg tablet PO SCH (07:34)
[2024-06-23] MEDS: tamsulosin 0.4mg capsule PO SCH (07:34)
[2024-06-23] MEDS: gabapentin 300mg capsule PO SCH (07:35)
[2024-06-23] MEDS: atorvastatin 10mg tablet PO SCH (07:58)
[2024-06-23] MEDS: ondansetron/PF 4mg/2ml inj IV PRN (09:34)
[2024-06-23] MEDS: HYDROcodone/acetaminophen 5mg/325mg tablet PO PRN (12:46)
[2024-06-24] VITALS (11 sets, daily range): BP systolic 146–180; BP diastolic 70–84; PULSE 77–103; RESP 13–22; TEMP 97.7–98.7; O2SAT 7–97
[2024-06-24 07:33] LABS: ALANINE AMINOTRANSFERASE 65 U/L (12-78); ALBUMIN/GLOBULIN RATIO 0.8 (1.1-1.5); ALKALINE PHOSPHATASE 54 IU/L (46-116); ANION GAP 4 (8-16); ASPARTATE AMINO TRANSFERASE 80 U/L (10-37); BLOOD UREA NITROGEN 15 MG/DL (7-18); BUN/CREATININE RATIO 13.8 (10.0-20.0); CALCIUM 8.6 MG/DL (8.5-10.1); CHLORIDE 105 MMOL/L (99-107); CREATININE 1.09 MG/DL (0.60-1.10); GLUCOSE 124 MG/DL (70-104); INR 1.1 INR; MAGNESIUM 1.8 MG/DL (1.5-2.4); POTASSIUM 4.2 MMOL/L (3.5-5.1); PROTHROMBIN TIME 11.9 SECONDS (9.0-12.0); SODIUM 138 MMOL/L (135-145); TOTAL PROTEIN 6.8 G/DL (6.4-8.2); eCRCL 53 ML/MIN; eGFR 65 ML/MIN
[2024-06-24 07:37] LABS: BASOPHILS % (AUTO) 0.2 % (0-1); EOSINOPHILS % (AUTO) 0.3 % (0-6); HEMATOCRIT 37.3 % (42.0-52.0); HEMOGLOBIN 12.7 g/dl (14.0-17.9); LYMPHOCYTES # (AUTO) 1.2 X10'3 (1.1-4.8); LYMPHOCYTES % (AUTO) 10.5 % (21-51); MEAN CORPUSCULAR HEMOGLOBIN 31.9 PG (27.0-31.0); MEAN CORPUSCULAR HGB CONC 34.1 g/dL (33.0-36.5); MEAN CORPUSCULAR VOLUME 93.4 FL (78-98); MEAN PLATELET VOLUME 9.9 FL (7.4-10.4); MONOCYTES # (AUTO) 0.7 X10'3 (0-0.9); MONOCYTES % (AUTO) 6.5 % (2-12); NEUTROPHILS % (AUTO) 82.5 % (42-75); PLATELET COUNT 153 X10'3 (140-440); RED CELL DISTRIBUTION WIDTH 13.9 % (11.5-14.5)
[2024-06-24] MEDS: hydrALAZINE 20mg/ml inj. IV PRN (13:43)
[2024-06-24] MEDS ORDERED: PERFLUTREN PROTEIN-A MICROSPHR (Optison) 0.22 MG/ML 3ML VIAL IV ONE (13:50)
[2024-06-24] MEDS ORDERED: ipratropium/albuterol 3ml nebule NEB PRN (14:45)
[2024-06-24] MEDS: amLODIPine 5mg tablet PO STA (14:52)
[2024-06-24 15:53] LABS: PRO BRAIN NATRIURETIC PEPTIDE 979 PG/ML (0-450)
[2024-06-24] MEDS: heparin, porcine 5000 units/ml vial SQ SCH (20:54)
[2024-06-25] VITALS (8 sets, daily range): BP systolic 129–167; BP diastolic 67–77; PULSE 98–127; RESP 16–22; TEMP 98.2–98.3; O2SAT 93–98
[2024-06-25] MEDS: hydrALAZINE 20mg/ml inj. IV ONE (01:12)
[2024-06-25 07:34] LABS: INR 1.1 INR; PROTHROMBIN TIME 11.6 SECONDS (9.0-12.0)
[2024-06-25 07:38] LABS: BASOPHILS % (AUTO) 0.3 % (0-1); EOSINOPHILS # (AUTO) 0.1 X10'3 (0-0.9); EOSINOPHILS % (AUTO) 0.7 % (0-6); HEMATOCRIT 37.6 % (42.0-52.0); HEMOGLOBIN 12.7 g/dl (14.0-17.9); LYMPHOCYTES % (AUTO) 9.6 % (21-51); MEAN CORPUSCULAR HEMOGLOBIN 31.4 PG (27.0-31.0); MEAN CORPUSCULAR HGB CONC 33.9 g/dL (33.0-36.5); MEAN CORPUSCULAR VOLUME 92.7 FL (78-98); MEAN PLATELET VOLUME 9.8 FL (7.4-10.4); MONOCYTES # (AUTO) 0.6 X10'3 (0-0.9); MONOCYTES % (AUTO) 6.1 % (2-12); NEUTROPHILS # (AUTO) 8.5 X10'3 (1.8-7.7); NEUTROPHILS % (AUTO) 83.3 % (42-75); PLATELET COUNT 159 X10'3 (140-440); RED BLOOD COUNT 4.06 X10'6 (4.70-6.10); RED CELL DISTRIBUTION WIDTH 13.7 % (11.5-14.5); WHITE BLOOD COUNT 10.2 X10'3 (4.5-11.0)
[2024-06-25 08:13] LABS: ALANINE AMINOTRANSFERASE 55 U/L (12-78); ALBUMIN 2.8 G/DL (3.4-5.0); ALBUMIN/GLOBULIN RATIO 0.7 (1.1-1.5); ALKALINE PHOSPHATASE 53 IU/L (46-116); ANION GAP 7 (8-16); ASPARTATE AMINO TRANSFERASE 50 U/L (10-37); BILIRUBIN,TOTAL 0.8 MG/DL (0.1-1.0); BLOOD UREA NITROGEN 9 MG/DL (7-18); BUN/CREATININE RATIO 10.7 (10.0-20.0); CALCIUM 8.5 MG/DL (8.5-10.1); CHLORIDE 101 MMOL/L (99-107); CREATININE 0.84 MG/DL (0.60-1.10); GLUCOSE 137 MG/DL (70-104); MAGNESIUM 1.7 MG/DL (1.5-2.4); POTASSIUM 3.3 MMOL/L (3.5-5.1); SODIUM 136 MMOL/L (135-145); TOTAL CARBON DIOXIDE 27.6 MMOL/L (24-32); TOTAL PROTEIN 6.7 G/DL (6.4-8.2); eCRCL 69 ML/MIN; eGFR 87 ML/MIN
[2024-06-25] MEDS: amLODIPine 5mg tablet PO SCH (08:16)
[2024-06-25] MEDS ORDERED: potassium Cl 40MEQ/1/2NS 520ml 520 ML IV PRN (15:15)
[2024-06-25] MEDS ORDERED: magnesium sulf-water 4G/100mL 100 ML IV PRN (15:15)
[2024-06-25] MEDS ORDERED: potassium Cl 20 mEq SR tablet PO PRN ×2 (15:15)
[2024-06-25] MEDS ORDERED: magnesium Cl slow-release 64mg tablet PO PRN (15:15)
[2024-06-25] MEDS ORDERED: magnesium sulf-water 2g/50mL 50 ML IV PRN (15:15)
[2024-06-25] MEDS ORDERED: NOR5T PO (16:20)
[2024-06-25] MEDS ORDERED: ATOR10TA PO (16:20)
[2024-06-25] MEDS ORDERED: METR-159 PO (16:21)
[2024-06-25] MEDS ORDERED: LEVO-65 PO (16:21)
[2024-06-25] MEDS ORDERED: K and/or MAG REPLACEMENT MC SCH (20:00)
== END 2024-06-25 17:40 | disposition home or self-care (01) | DRG 419 ==
LOC: ER 09:33 → ED HOLD 12:21 → PCU 3S 19:20
PROVIDERS: ADMIT Internal Medicine; ATTEND Internal Medicine
PROC: 0FT44ZZ Resection of Gallbladder, Percutaneous Endoscopic Approach (ICD-10-PCS; principal; 2024-06-22 16:12)
DX: K80.00 Calculus of gallbladder with acute cholecystitis without obstruction (principal); N40.0 Benign prostatic hyperplasia without lower urinary tract symptoms; Z20.822 Contact with and (suspected) exposure to COVID-19; I20.9 Angina pectoris, unspecified; E78.5 Hyperlipidemia, unspecified; I10 Essential (primary) hypertension; K66.0 Peritoneal adhesions (postprocedural) (postinfection)
CPT/HCPCS: 36415; 71045; 74018; 76700; 80053; 80061; 81001; 83036; 83605; 83690; 83735; 83880; 84145; 84484; 85025; 85610; 85730; 86885; 86900; 86901; 87040; 87081; 87502; 87503; 87811; 93005; 93306; 94760; 97116; 97161; 97530; 99285; A4215; A4340; A4615; A4618; A4620; A7000; G0378; J0131; J0360; J0744; J1100; J1644; J2175; J2250; J2270; J2405; J2704; J3010; J3490; J7030; J7040; J7120; S0020